=== PATIENT | male | born 1930 | race Caucasian/White ===

== ENCOUNTER → 2020-07-30 | Outpatient (CLI) | payer MEDICARE, OTHER ==
[~2020-07-30] MED LIST: ACET325T14 PO; Albuterol-Ipratropium Mdi INH; LOSA25TA25 PO; MIDO10TA PO; SIMV20TA19 PO; SPIR25TA5 PO; TORS20TA2 PO
== END | disposition home or self-care (01) ==
LOC: CVU 15:29
PROVIDERS: ATTEND Internal Medicine Cardiovascular Disease
DX: I08.8 Other rheumatic multiple valve diseases (principal); I11.0 Hypertensive heart disease with heart failure; I50.9 Heart failure, unspecified; R06.02 Shortness of breath
CPT/HCPCS: 93306